=== PATIENT | female | born 1950 | race Caucasian/White ===

== ENCOUNTER 2016-09-21 09:30 | Day surgery (SDC) | payer OTHER ==
[~2016-09-21] VITALS: Ht 167.6 cm; Wt 77.1 kg
--- NOTE | ~2016-09-21 | O ---
[facility] [place] [address] OPERATIVE REPORT Name: DELLA KELLY Destiney Room #: DEP [facility]..#: [id number] Admission: 09/21/16 Attend Phys: Ronan Torres MD Discharge: 09/21/16 Date of : 52 Report #: [id number] THIS REPORT FOR: //name// CC: Shay Torres DATE OF SERVICE: 09/21/2016 PREOPERATIVE DIAGNOSIS: Left upper lid retraction with keratopathy. POSTOPERATIVE DIAGNOSIS: Left upper lid retraction with keratopathy. PROCEDURE: Left upper lid retraction repair. SURGEON: Ronan Torres M.D. WOODWORKING BELT SANDER: None. ANESTHESIA: MAC. COMPLICATIONS: None. INDICATIONS FOR SURGERY: This pleasant 66-year-old woman has a left upper lid retraction with chronic ocular exposure. She presents today for a left upper lid retraction repair. An informed consent was obtained to include but not limited to the potential risk for loss of vision, bleeding, infection, failure to improve the problem, and the potential need for further surgery or treatment. Asymmetry was also discussed. DESCRIPTION OF PROCEDURE: The patient was taken to the operating room where 2% Xylocaine with epinephrine mixed with equal parts of 0.75% Marcaine with Wydase was administered transcutaneously to the left upper lid. The patient was subsequently prepped and draped in the usual sterile fashion. A fine tip skin marking pen was then utilized to outline the left upper lid crease. The incision was then made with a Marquita scissor, and hemostasis achieved with diligent pinpoint monopolar cautery. The dissection was then carried down through the auricularis muscle, and the orbital septum until the preaponeurotic fat was identified. The preaponeurotic fat was teased free from the anterior surface of the levator tendon. The levator tendon was then disinserted from the anterior surface of the tarsal plate. It was then dissected free in the relatively avascular Betts's muscle plane. The aponeurosis was then recessed and reattached to the anterior surface of the tarsal plate with interrupted mattress 6-0 Novafil suture, after an acceptable height had been achieved. The wound was then closed with interrupted 6-0 chromic sutures to recreate the upper lid crease, and then a 6-[address] [address] OPERATIVE REPORT Name: DELLA KELLY Room #: DEP [facility]#: [id number] Admission: 09/21/16 Attend Phys: Ronan Torres MD Discharge: 09/21/16 Date of : 52 Report #: [id number] suture to close the skin. The patient was subsequently transported to the recovery area, having tolerated the procedures well with no anesthetic or operative complications being noted. Thank you very much. Supportive dictations follow. <ELECTRONICALLY SIGNED> By: Ronan Torres MD 09/25/16 0621 [id number] MD vincenzo Marie
[~2016-09-21 09:30] MED LIST: APAP500 PO; BONIVA150 MG PO; ENBREL50 MG/1 ML SQ; HYDROCODONE-AP1 EAC6 PO; LABETALOL 100100 MG PO; MAXZIDE-25 MG1 EACH PO; NAPROSYN500 MG PO; VITAMIN B COMP1 EAC7 PO; VITAMIN D32000 UNIT PO; VITAMIN D400 UNIT PO; VITAMIN E400 UNIT PO; VITAMINC500 PO
[2016-09-21 10:41] VITALS: BP 126/70
== END 2016-09-21 12:25 | disposition home or self-care (01) ==
LOC: OR 09:30 → TBA 09:34 → OR 10:30
DX: H02.534 Eyelid retraction left upper eyelid (principal); I10 Essential (primary) hypertension; G47.33 Obstructive sleep apnea (adult) (pediatric); J45.909 Unspecified asthma, uncomplicated; M06.9 Rheumatoid arthritis, unspecified; F17.210 Nicotine dependence, cigarettes, uncomplicated
CPT/HCPCS: 50010; 50101; 50386; 50398; 51606; 51636; 56528; 56531; 62110; 62850; 70005